=== PATIENT | female | born 1980 | race Caucasian/White ===

== ENCOUNTER 2020-07-27 15:52 | Emergency (ER) | payer OTHER ==
[~2020-07-27] VITALS: Ht 154.9 cm; Wt 89.8 kg
[~2020-07-27 15:52] MED LIST: CYMBALTA; DURAGESIC1 EAC2; LISINOPRIL20 MG PO; LORTAB; LORTAB 5 MG/5001 TA1 PO; METOPROLOL SUC100 MG PO; NORCO 5-325 TA1 EACH PO; NORFLEX100 MG PO; PRINZIDE 20-121 EACH PO; TRAMADOL 50 MG50 MG PO; ULTRAM 50MG TAB50 MG PO; VALIUM5 MG PO
[2020-07-27 15:55] VITALS: BP 136/76
[2020-07-27] MEDS ORDERED: CLEOCIN HCL300 MG PO (16:33)
[2020-07-27] MEDS ORDERED: ULTRAM 50MG TAB50 MG PO (16:34)
[2020-07-27] MEDS ORDERED: PERIDEX 0.12%473 M1 PO (16:34)
== END 2020-07-27 16:52 | disposition home or self-care (01) ==
LOC: ER 15:52
DX: K04.7 Periapical abscess without sinus (principal); I10 Essential (primary) hypertension; G89.29 Other chronic pain; M54.9 Dorsalgia, unspecified; Z79.899 Other long term (current) drug therapy; Z87.891 Personal history of nicotine dependence; Z88.0 Allergy status to penicillin; Z88.2 Allergy status to sulfonamides; Z88.5 Allergy status to narcotic agent